=== PATIENT | female | born 1995 | race Caucasian/White ===

== ENCOUNTER 2021-02-08 21:01 | Inpatient (IN) ==
[2021-02-08] MEDS ORDERED: *HR* Nalbuphine 10 MG/ML AMPUL IV PRN (21:28)
[2021-02-08] MEDS ORDERED: Metoclopramide 10 MG/2 ML VIAL IVP PRN (21:28)
[2021-02-08] MEDS ORDERED: Naloxone 0.4 MG/ML INJ IVP PRN (21:28)
[2021-02-08] MEDS ORDERED: Famotidine 20 MG/2 ML VIAL IVP PRN (21:28)
[2021-02-08] MEDS ORDERED: Ringers Solution, Lactated 1,000 ML IVC SCH (21:30)
[2021-02-08 21:44] LABS: Basophils % 0.2 %; Eosinophils # 0.2 K/mcL (0.0-0.6); Eosinophils % 1.3 %; Hematocrit 33.8 % (35.3-44.9); Hemoglobin 11.7 g/dL (11.5-15.4); Immature Granulocytes % 0.7 % (0-4); Lymphocytes # 2.6 K/mcL (0.6-4.6); Lymphocytes % 21.6 %; Mean Corpuscular HGB Conc 34.6 g/dL (31.6-35.5); Mean Corpuscular Hemoglobin 29.9 pg (28.0-33.3); Mean Corpuscular Volume 86.4 fL (83.0-100.0); Mean Platelet Volume 9.4 fL (9.4-12.4); Monocytes % 7.9 %; Neutrophils # 8.3 K/mcL (1.6-8.9); Platelet Count 280 K/mcL (140-400); Red Blood Count 3.91 M/mcL (3.82-4.97); Red Cell Distribution Width 13.1 % (11.5-14.5); Segmented Neutrophils % 68.3 %; White Blood Count 12.1 K/mcL (4.3-11.1)
[2021-02-08 21:55] LABS: Amphetamine Screen,Urine Negative ng/mL (Cutoff=1000); Barbiturate Screen,Urine Negative ng/mL (Cutoff=200); Benzodiazepines Screen,Urine Negative ng/mL (Cutoff=200); Cannabinoid Screen,Urine Negative ng/mL (Cutoff = 50); Cocaine Screen,Urine Negative ng/mL (Cutoff= 300); Opiate Screen,Urine Negative ng/mL (Cutoff=300); Phencyclidine Screen,Urine Negative ng/mL (Cutoff=25)
[2021-02-08] MEDS ORDERED: Penicillin G Potassium 5,000,000 UNIT in 0.9 % Sodium Chloride Mini Bag 100 ML IVPB ONE (22:02)
[2021-02-08] MEDS ORDERED: *HR* FentaNYL (PF) 100 MCG/2 ML VIAL EP ONE (22:10)
[2021-02-08] MEDS ORDERED: Ropivacaine/PF 0.2% 20 ML VIAL EP ONE (22:10)
[2021-02-08] MEDS ORDERED: EPHEDrine 50 MG/ML VIAL IVP PRN (22:10)
[2021-02-08] MEDS ORDERED: Epidural Premix (fent/bupiv) 110 ML EP ONE (22:14)
[2021-02-08] MEDS ORDERED: Epidural Premix (fent/bupiv) 110 ML EP SCH (22:15)
[2021-02-09] MEDS ORDERED: Oxytocin 20 units/ LR 1000 mL 20 UNIT/1,000 ML BAG IVC ONE (00:41)
[2021-02-09] MEDS ORDERED: Oxytocin 20 units/ LR 1000 mL 20 UNIT/1,000 ML BAG IVC SCH ×2 (00:45→06:13)
[2021-02-09 01:41] LABS: Influenza A PCR Negative (Negative); Influenza B PCR Negative (Negative); Resp. Syncytial Virus PCR Negative (Negative)
[2021-02-09] MEDS ORDERED: Penicillin G Potassium 2,500,000 UNIT/105 ML MLS IVPB SCH (02:00)
[2021-02-09 02:02] LABS: SARS-CoV-2 by PCR (In House) Negative (Negative)
[2021-02-09] MEDS ORDERED: Ondansetron ODT 4 MG TAB.RAPDIS SL PRN (06:13)
[2021-02-09] MEDS ORDERED: Measles/Mumps/Rubella Vacc 0.5 ML VIAL SQ PRN (06:13)
[2021-02-09] MEDS ORDERED: Benzocaine/Menthol 56 GM AEROSOL SPRAY TP PRN (06:13)
[2021-02-09] MEDS ORDERED: Lanolin 7 G OINT...G. TP PRN (06:13)
[2021-02-09] MEDS: Ibuprofen 600 MG TABLET PO SCH ×3 (08:55→16:26)
[2021-02-09] MEDS: Prenatal Vit/FA 1 EACH TABLET PO SCH (08:56)
[2021-02-09] MEDS ORDERED: NON-FORMULARY MEDICATION 1 EACH EACH (Prenatal Vits96/Iron Fum/Folic [Prenatal Tablet] 1 E PO SCH (09:00)
[2021-02-09] MEDS ORDERED: FLU Vac QV 21-22 (6Month+)/PF 0.5 ML SYRINGE IM ONE (11:22)
[2021-02-09] MEDS: Acetaminophen 325 MG TABLET PO SCH (12:00)
[2021-02-09 12:29] VITALS: O2SAT 97
[2021-02-10 04:17] LABS: Basophils % 0.4 %; Eosinophils # 0.2 K/mcL (0.0-0.6); Eosinophils % 1.7 %; Hematocrit 30.2 % (35.3-44.9); Immature Granulocytes % 0.5 % (0-4); Lymphocytes # 2.7 K/mcL (0.6-4.6); Lymphocytes % 24.5 %; Mean Corpuscular HGB Conc 32.8 g/dL (31.6-35.5); Mean Corpuscular Volume 88.6 fL (83.0-100.0); Mean Platelet Volume 9.5 fL (9.4-12.4); Monocytes % 8.7 %; Neutrophils # 7.1 K/mcL (1.6-8.9); Platelet Count 228 K/mcL (140-400); Red Blood Count 3.41 M/mcL (3.82-4.97); Red Cell Distribution Width 13.3 % (11.5-14.5); Segmented Neutrophils % 64.2 %; White Blood Count 11.1 K/mcL (4.3-11.1)
[2021-02-10 04:35] LABS: Hemoglobin 9.9 g/dL (11.5-15.4)
[2021-02-10 07:18] VITALS: BP 104/63; PULSE 75; TEMP 98.2
[2021-02-10] MEDS: Ibuprofen 600 MG TABLET PO SCH ×2 (07:42)
[2021-02-10] MEDS: Acetaminophen 325 MG TABLET PO SCH ×2 (07:43)
[2021-02-10] MEDS: Prenatal Vit/FA 1 EACH TABLET PO SCH (07:43)
== END 2021-02-10 13:55 | disposition home or self-care (01) | DRG 806 ==
LOC: 1NENULAB → 1NENUOBS 02-09 06:14
PROVIDERS: ADMIT Obstetrics & Gynecology; ATTEND Obstetrics & Gynecology